=== PATIENT | female | born 1990 | race Caucasian/White ===

== ENCOUNTER 2017-04-13 07:45 | Emergency (ER) | payer OTHER ==
[2017-04-13 07:59] VITALS: TEMP 98.6; BMI 40.6
--- NOTE | 2017-04-13 08:01 | PDOC ---
History of Present Illness - General History Source: Patient Exam Limitations: No Limitations - History of Present Illness Initial Comments: 04/13/17 08:58 The patient is a 26 year old female, with a significant past medical history of hypothyroidism who presents to the emergency department with intermittent crampy epigastric abdominal pain a/w N/V/D for the past 4 days. Patient reports receiving flu shot last week and since then has developed these GI symptoms. Patient endorses diarrhea (watery, nonbloody/nonmucoid) initially, about 4-6 episodes 3 days ago that has since slowed down, vomiting x2 yesterday ( nonbilious,nonbloody) and subjective fever. Has not had diarrhea for 2 days. She also reports a dry cough from post nasal drip and a sore throat yesterday that resolved today. Patient reports sick contacts at work however denies any recent travel or illnesses. She reports she came to the ED today because it is the 3rd day in a row she has missed work and needs a work note. Patient denies fever/chills. She denies chest pain, headache or dizziness. She denies constipation. She denies dysuria, frequency, urgency or hematuria. <Orin Rios - Last Filed: 04/13/17 08:58> <Ivette Levin - Last Filed: 04/13/17 10:46> - General Chief Complaint: Nausea Stated Complaint: VOMITING,DIARRHEA,NAUSEA Time Seen by Provider: 04/13/17 08:00 Past History <Orin Rios - Last Filed: 04/13/17 08:58> - Past Medical History Thyroid Disease: Yes - Suicide/Smoking/Psychosocial Hx Smoking History: Never smoked Hx Alcohol Use: No Drug/Substance Use Hx: No Substance Use Type: None <Ivette Levin - Last Filed: 04/13/17 10:46> - Past Medical History Allergies/Adverse Reactions: Allergies Allergy/AdvReac Type Severity Reaction Status Date / Time No Known Allergies Allergy Verified 04/13/17 07:53 Home Medications: Ambulatory Orders Levothyroxine [Synthroid -] 100 mcg PO DAILY 04/13/17 Review of Systems - Review of Systems Able to Perform ROS?: Yes Comments:: 04/13/17 08:58 GENERAL/CONSTITUTIONAL: +fever or chills. No weakness. HEAD, EYES, EARS, NOSE AND THROAT: No change in vision. No ear pain or discharge. +sore throat. CARDIOVASCULAR: No chest pain or shortness of breath. RESPIRATORY: +cough, wheezing, or hemoptysis. GASTROINTESTINAL: + nausea, vomiting, diarrhea, epigastric abdominal pain. No constipation. GENITOURINARY: No dysuria, frequency, or change in urination. MUSCULOSKELETAL: No joint or muscle swelling or pain. No neck or back pain. SKIN: No rash NEUROLOGIC: No headache, vertigo, loss of consciousness, or change in strength/ sensation. ENDOCRINE: No increased thirst. No abnormal weight change. HEMATOLOGIC/LYMPHATIC: No anemia, easy bleeding, or history of blood clots. ALLERGIC/IMMUNOLOGIC: No hives or skin allergy. <Orin Rios - Last Filed: 04/13/17 08:58> *Physical Exam - Vital Signs Last Vital Signs Temp Pulse Resp BP Pulse Ox 98.6 F 80 20 131/79 97 04/13/17 07:50 04/13/17 07:50 04/13/17 07:50 04/13/17 07:50 04/13/17 07:50 - Physical Exam Comments: 04/13/17 08:58 GENERAL: Awake, alert, and fully oriented, in no acute distress HEAD: No signs of trauma EYES: PERRLA, EOMI, sclera anicteric, conjunctiva clear ENT: Auricles normal inspection, hearing grossly normal, nares patent. + oropharyngeal erythema, no exudates. No tonsillar swelling, no petechiae. + tender cervical LAD. Moist mucosa NECK: Normal ROM, supple, no lymphadenopathy, JVD, or masses LUNGS: Breath sounds equal, clear to auscultation bilaterally. No wheezes, and no crackles HEART: Regular rate and rhythm, normal S1 and S2, no murmurs, rubs or gallops ABDOMEN: Soft, nontender, normoactive bowel sounds. No guarding, no rebound. No masses EXTREMITIES: Normal range of motion, no edema. No clubbing or cyanosis. No cords, erythema, or tenderness NEUROLOGICAL: Normal speech, cranial nerves intact, negative pronator drift, 5/ 5 strength in all 4 extremities, normal sensation to light touch in all 4 extremities, normal cerebellar exam, normal gait, normal reflexes and tone SKIN: Warm, Dry, normal turgor, no rashes or lesions noted. <Orin Rios - Last Filed: 04/13/17 08:58> - Vital Signs Last Vital Signs Temp Pulse Resp BP Pulse Ox 98.6 F 80 20 131/79 97 04/13/17 07:50 04/13/17 07:50 04/13/17 07:50 04/13/17 07:50 04/13/17 07:50 <Ivette Levin - Last Filed: 04/13/17 10:46> ED Treatment Course - LABORATORY CBC & Chemistry Diagram: 04/13/17 08:35 04/13/17 08:35 - Medications Given in the ED: ED Medications Discontinued Medications Generic Name Dose Route Start Last Admin Trade Name Ivette PRN Reason Stop Dose Admin Ondansetron HCl 4 mg 04/13/17 08:22 04/13/17 08:40 Zofran Injection IVPUSH 04/13/17 08:23 4 mg ONCE ONE Administration Sodium Chloride 1,000 ml 04/13/17 08:22 04/13/17 08:39 Normal Saline - IV 04/13/17 08:23 1,000 ml ONCE ONE Administration <Orin Rios - Last Filed: 04/13/17 08:58> - LABORATORY CBC & Chemistry Diagram: 04/13/17 09:18 04/13/17 08:35 <Ivette Levin - Last Filed: 04/13/17 10:46> Medical Decision Making - Medical Decision Making 04/13/17 08:54 26-year-old female history of hypothyroidism presents with 4 days of nausea, vomiting, diarrhea associated with epigastric abdominal pain. Her symptoms have slowly been improving however she reports she had to come to the emergency department today for a work note since she missed 3 days of work. Vitals are unremarkable. Exam is unremarkable with a nontender abdominal exam. Likely resolving viral gastroenteritis. -labs -UA -UPT -IVF -zofran -anticipate DC 04/13/17 10:40 TSH elevated to 16. Patient reports she has not taken her levothyroxine in 4 years. She denies any cold intolerance, weight gain, fatigue. Vitals here are stable. I advised the patient to see her PMD Dr. Francois within 2-3 days to be restarted on synthroid. Remainder of labs, UA unremarkable and UPT negative. Patient feels better after Zofran and IV fluids. Is tolerating by mouth in the emergency department. Patient requests to go home. I discussed the physical exam findings, ancillary test results and final diagnoses with the patient. I answered all of the patient's questions. The patient was satisfied with the care received and felt comfortable with the discharge plan and treatment plan. The patient will call their primary care physician within 24 hours to arrange follow-up and will return to the Emergency Department with any new, persistent or worsening symptoms. <Ivette Levin - Last Filed: 04/13/17 10:46> *DC/Admit/Observation/Transfer - Attestations Scribe Attestion: 04/13/17 08:58 Documentation prepared by Orin Rios, acting as medical collections specialist for Ivette Levin MD <Orin Rios - Last Filed: 04/13/17 08:58> - Discharge Dispostion Admit: No - Attestations Physician Attestion: 04/13/17 10:46 I, Dr. Ivette Levin MD, attest that this document has been prepared under my direction and personally reviewed by me in its entirety. I further attest, that it accurately reflects all work, treatment, procedures and medical decision -making performed by me. <Ivette Levin - Last Filed: 04/13/17 10:46> Diagnosis at time of Disposition: Viral infection - Discharge Dispostion Disposition: HOME Condition at time of disposition: Stable
[2017-04-13] MEDS ORDERED: ONDANSETRON 4 MG/2 ML VIAL IVPUSH ONE (08:22)
[2017-04-13] MEDS ORDERED: SODIUM CHLORIDE 0.9% 500 ML INFUS.BAG IV ONE (08:22)
[2017-04-13] MEDS ORDERED: ONDANSETRON 4 MG/2 ML VIAL ONE (08:27)
[2017-04-13 09:16] LABS: URINE APPEARANCE CLOUDY; URINE BILIRUBIN NEGATIVE (NEGATIVE); URINE BLOOD 2+ (NEGATIVE); URINE COLOR DKYELLOW; URINE GLUCOSE (UA) NEGATIVE (NEGATIVE); URINE KETONE NEGATIVE (NEGATIVE); URINE LEUK ESTERASE TRACE (NEGATIVE); URINE NITRITE NEGATIVE (NEGATIVE); URINE PROTEIN NEGATIVE (NEGATIVE); URINE UROBILINOGEN NEGATIVE mg/dL (0.2-1.0)
[2017-04-13 09:23] LABS: URINE BACTERIA MODERATE /hpf (NONE SEEN); URINE MUCUS MODERATE; URINE RBC 5 /hpf (0-3); URINE WBC 5 /hpf (3-5)
[2017-04-13 09:44] LABS: ALBUMIN 3.9 g/dl (3.4-5.0); ANION GAP 6 (8-16); BILIRUBIN,TOTAL 0.5 mg/dL (0.2-1.0); CO2 28 mmol/L (21-32); CREATININE 0.8 mg/dL (0.55-1.02); GLUCOSE,RANDOM 91 mg/dL (74-106); MAGNESIUM 2.3 mg/dL (1.8-2.4); SGOT/AST 24 U/L (15-37); SGPT/ALT 41 U/L (12-78)
[2017-04-13 09:48] LABS: BASOPHIL 0.2 % (0-2.0); EOSINOPHIL 3.1 % (0-4.5); MCH 27.3 pg (25.7-33.7); MEAN CELL VOLUME 80.1 fl (80-96); MEAN PLT VOLUME 7.6 fl (7.5-11.1); NEUTROPHILS 61.3 % (42.8-82.8); PLATELET COUNT 213 K/MM3 (134-434); RDW 14.7 % (11.6-15.6); WHITE BLOOD COUNT 6.8 K/mm3 (4.0-10.0)
[2017-04-13 09:53] LABS: ALK PHOS 91 U/L (45-117)
[2017-04-13 11:08] VITALS: BP 124/62; PULSE 64
== END 2017-04-13 11:08 | disposition home or self-care (01) ==
LOC: JER 07:45
PROC: 3E033GC Introduction of Other Therapeutic Substance into Peripheral Vein, Percutaneous Approach (ICD-10-PCS; principal; 2017-04-13)
PROC: 3E0337Z Introduction of Electrolytic and Water Balance Substance into Peripheral Vein, Percutaneous Approach (ICD-10-PCS; 2017-04-13)
DX: B34.9 Viral infection, unspecified (principal)
CPT/HCPCS: 36415; 80053; 81003; 81015; 83690; 83735; 84443; 84703; 85025; 87086; 99282-25

== ENCOUNTER 2017-09-19 17:52 | Emergency (ER) | payer OTHER ==
[2017-09-19 18:24] VITALS: BP 127/73; PULSE 82; TEMP 98.2; BMI 42.5
--- NOTE | 2017-09-19 18:25 | PDOC ---
Rapid Medical Evaluation Time Seen by Provider: 09/19/17 18:20 Medical Evaluation: Allergies Allergy/AdvReac Type Severity Reaction Status Date / Time No Known Allergies Allergy Verified 09/19/17 18:19 09/19/17 18:23 I have performed a brief in-person evaluation of the patient. The patient presents with chief complaint of: pressure in lower abdomen with blood tinged urine this am. Patient reports pressure with urination, frequency with urination and pressure with urination. Pertinent physical exam findings are: NAD lungs clear bilaterally heart s1s2 abdomen; tenderness over mid suprapubis, no cva tenderness I have ordered the following: urine preg, urinalysis The patient will proceed to the ED for further evaluation. 09/19/17 21:01 Discharge Disposition - Diagnosis Hematuria, UTI (urinary tract infection) - Discharge Dispostion Disposition: HOME Condition at time of disposition: Good - Prescriptions Prescriptions: Nitrofurantoin Monohyd/M-Cryst [Macrobid -] 100 mg PO BID #14 capsule - Referrals Referrals: Fabio Zhu MD [Primary Care Provider] - - Patient Instructions Printed Discharge Instructions: DI for Urinary Tract Infection (UTI) Additional Instructions: Discharge Instructions: -You have a urinary tract infection -A prescription for antibiotics has been sent to your pharmacy -Please drink 64oz of water daily -return to the ER with any worsening or concerning symptoms - Post Discharge Activity
--- NOTE | 2017-09-19 18:56 | PDOC ---
History of Present Illness - General Chief Complaint: Urinary Problem Stated Complaint: PAIN ON URINATION Time Seen by Provider: 09/19/17 18:20 History Source: Patient Exam Limitations: No Limitations - History of Present Illness Initial Comments: CHIEF COMPLAINT: 27 y/o afebrile female with PMH hypothyroid c/o increased urinary frequency, hematuria and abdominal pressure since this morning. HISTORY OF PRESENT ILLNESS: The patient denies dysuria, f/c, n/v/d, CP, SOB, back pain, flank pain. Vital signs on arrival are within normal limits. REVIEW OF SYSTEMS: GENERAL/CONSTITUTIONAL: No fever/chills. No weakness. No weight change. GASTROINTESTINAL: +lower middle abdominal pressure. No nausea, vomiting, diarrhea. GENITOURINARY: +hematuria, increased urinary frequency. No dysuria. MUSCULOSKELETAL: No joint or muscle swelling or pain. No neck or back pain. SKIN: No rash or easy bruising. NEUROLOGIC: No headache, vertigo, loss of consciousness, or loss of sensation. PHYSICAL EXAM: GENERAL: The patient is awake, alert, and fully oriented, in no acute distress. She is morbidly obese, ambulatory, in NAD or obvious discomfort. ABDOMEN: Soft, obese, TTP of suprapubic region. No flank pain with palpation BACK: No CVA TTP b/l. EXTREMITIES: Normal range of motion, no edema. NEUROLOGICAL: Normal speech, normal gait. CN II-XII grossly intact. SKIN: Warm, dry, normal turgor, no rashes or lesions noted. Past History - Past Medical History Allergies/Adverse Reactions: Allergies Allergy/AdvReac Type Severity Reaction Status Date / Time No Known Allergies Allergy Verified 09/19/17 18:19 Home Medications: Ambulatory Orders Levothyroxine [Synthroid -] 100 mcg PO DAILY 04/13/17 Nitrofurantoin Monohyd/M-Cryst [Macrobid -] 100 mg PO BID #14 capsule 09/19/17 COPD: No Thyroid Disease: Yes (HYPO) - Surgical History Cholecystectomy: Yes - Suicide/Smoking/Psychosocial Hx Smoking History: Never smoked Hx Alcohol Use: No Drug/Substance Use Hx: No Substance Use Type: None *Physical Exam - Vital Signs Last Vital Signs Temp Pulse Resp BP Pulse Ox 98.2 F 82 19 127/73 98 09/19/17 18:19 09/19/17 18:19 09/19/17 18:19 09/19/17 18:19 09/19/17 18:19 Medical Decision Making - Medical Decision Making A/P: 27 y/o afebrile female with UTI vs kidney stone. Plan is as follows: 1. hcg 2. UA 3. Urine culture hcg - negative UA + for UTI. Will discharge to home with rx for macrobid. Instructed the patient to drink plenty of fluids and return to the ER with any worsening or concerning symptoms The patient verbalizes understanding of all instructions, has no further questions and is awaiting discharge. *DC/Admit/Observation/Transfer Diagnosis at time of Disposition: Hematuria Qualifiers: Hematuria type: unspecified type Qualified Code(s): R31.9 - Hematuria, unspecified UTI (urinary tract infection) Qualifiers: Urinary tract infection type: acute cystitis Hematuria presence: with hematuria Qualified Code(s): N30.01 - Acute cystitis with hematuria - Discharge Dispostion Disposition: HOME Condition at time of disposition: Good - Referrals Referrals: Fabio Zhu MD [Primary Care Provider] - - Patient Instructions Printed Discharge Instructions: DI for Urinary Tract Infection (UTI) Additional Instructions: Discharge Instructions: -You have a urinary tract infection -A prescription for antibiotics has been sent to your pharmacy -Please drink 64oz of water daily -return to the ER with any worsening or concerning symptoms - Post Discharge Activity
[2017-09-19 19:03] LABS: HCG,QUALITATIVE URINE NEGATIVE
[2017-09-19 19:06] LABS: URINE APPEARANCE CLOUDY; URINE BILIRUBIN NEGATIVE (NEGATIVE); URINE BLOOD 3+ (NEGATIVE); URINE COLOR LTYELLOW; URINE GLUCOSE (UA) NEGATIVE (NEGATIVE); URINE KETONE NEGATIVE (NEGATIVE); URINE NITRITE NEGATIVE (NEGATIVE); URINE UROBILINOGEN NEGATIVE mg/dL (0.2-1.0)
[2017-09-19 19:16] LABS: URINE LEUK ESTERASE 1+ (NEGATIVE); URINE PROTEIN 2+ (NEGATIVE)
[2017-09-19 20:18] LABS: EPI CELLS FEW /HPF (FEW); URINE BACTERIA RARE /hpf (NONE SEEN); URINE MUCUS RARE
--- NOTE | 2017-09-22 07:24 | PDOC ---
Patient Follow-up (Call Back) - Post ED Follow - Up Condition at time of discharge: Good Disposition at time of original discharge: HOME Reason for Call Back: Abnwl. Microbiology (Patient's urine culture preliminary results lactose fermenting negative bacilli greater than 100,000 CFU per mL. Patient was discharged from the ED with Macrobid. No further interventions and will await final report)
== END 2017-09-19 20:32 | disposition home or self-care (01) ==
LOC: JERFT 17:52
DX: N30.01 Acute cystitis with hematuria (principal)
CPT/HCPCS: 81003; 81015; 84703; 87086; 87186; 99281-25